=== PATIENT | female | born 1940 | race Caucasian/White ===

== ENCOUNTER 2017-10-31 06:56 | Emergency (ER) | payer MEDICARE, BC ==
--- NOTE | 2017-10-31 07:14 | ERNOTE ---
ENT HPI Date of Service: 10/31/17 Presenting Symptoms: other - sore throat Time Seen by Provider: 10/31/17 07:15 Source: patient Exam Limitations: no limitations - Immun/Allergies/Home Medications Immunizations: IMMUNIZATION HX Immunizations Up to Date No History of Influenza Vaccine No Hx Pneumococcal Vaccination No Allergies/Adverse Reactions: Allergies Allergy/AdvReac Type Severity Reaction Status Date / Time nicotine Allergy Severe nicotine Verified 10/31/17 07:34 patch caused Anaphylaxis Penicillins Allergy Severe Anaphylaxis Verified 10/31/17 07:34 bupropion HCl [From Zyban] Allergy Unknown Verified 10/31/17 07:34 cyclobenzaprine HCl Allergy Unknown Verified 10/31/17 07:34 [From Flexeril] nabumetone Allergy Unknown Verified 10/31/17 07:34 acetaminophen [From Ultracet] AdvReac Mild chest Verified 10/31/17 07:34 discomfort adhesive AdvReac Mild bandaids-re Verified 10/31/17 07:34 dness tramadol HCl [From Ultracet] AdvReac Mild chest Verified 10/31/17 07:34 discomfort trazodone AdvReac Mild keeps her Verified 10/31/17 07:34 awake Home Medications: HOME MEDICATIONS Aspirin [Aspir 81] 81 mg PO DAILY 11/14/12 [Last Taken Unknown] Levothyroxine Sodium 50 mcg PO DAILY 11/14/12 [Last Taken Unknown] Metoprolol Tartrate 50 mg PO BID 11/14/12 [Last Taken 12/12/15 06:30] Simvastatin 20 mg PO HS 11/14/12 [Last Taken Unknown] Albuterol Sulfate/Ipratropium [Duoneb 2.5-0.5MG/3ML Soln] 3 ml IH QID 12/03/15 [ Last Taken Unknown] Cholecalciferol (Vitamin D3) [Vitamin D] 1,000 unit PO DAILY 12/03/15 [Last Taken Unknown] Potassium Chloride [Klor-Con M10] 20 meq PO BID 12/03/15 [Last Taken Unknown] Bimatoprost [Lumigan 0.01% Opth Solution] 1 drop OP DAILY 10/31/17 [Last Taken Unknown] Doxycycline Hyclate [Morgidox] 100 mg PO BID #13 capsule 10/31/17 [Last Taken Unknown] HYDROcodone/ACETAMINOPHEN [[place] 5-325] 1 each PO QID 10/31/17 [Last Taken Unknown] Losartan/Hydrochlorothiazide [Losartan-Hctz 100-12.5 mg Tab] 1 each PO DAILY 10/07 [Last Taken Unknown] Triazolam 0.25 mg PO HS 10/31/17 [Last Taken Unknown] predniSONE [Deltasone] 20 mg PO BID #7 tablet 10/31/17 [Last Taken Unknown] - History of Present Illness Narrative: 77 year old that has had a two day history of productive cough, yielding yellow phlegm. Hx of COPD and typically has clear phlegm with coughing. No complaints of fever or chills, but has felt fatigued. Complaints of a sharp sensation at the throat and chest for 1.5 days, that is not improved or made worse by anything. She has not used any medications other than the routine meds. Date (Duration): 10/31/17 Time (Timing): 07:10 Severity: Present: moderate ENT Location: Present: throat Modifying Factors - Improves: Reports: nothing Modifying Factors - Worsens: Reports: nothing Associated Symptoms - ENT: Reports: sore throat Review of Systems - Review of Systems Constitutional: Present: other - feeling fatigued EYE: Present: no symptoms reported ENT: Present: no symptoms reported Respiratory: Present: cough Cardiology: Present: no symptoms reported Gastrointestinal/Abdominal: Present: no symptoms reported Genitourinary: Present: no symptoms reported Musculoskeletal: Present: no symptoms reported Skin: Present: no symptoms reported Neurological: Present: no symptoms reported Endocrine: Present: no symptoms reported Hematologic/Lymphatic: Present: no symptoms reported Psych: Present: no symptoms reported - Patient's Past Medical History Patient History - Medical: Anemia, Anxiety, Cataracts, Fibromyalgia, Hypothyroidism, Other Patient History - Cardiac/Respiratory: COPD, Hypertension, Hyperlipidemia, Sleep Apnea Patient History - Cancer: No Hx of Cancer, Radiation Therapy Patient History - Surgical Procedures: Cholecystectomy, Colon Resection, Colonoscopy, , EGD, T & A, Other Patient History - Other: None LMP (females 10-50): Menopausal - Social History Living Situations: home Abuse History: No History of abuse Psych History: Hx of Anxiety Smoking Status: Never smoker Have you smoked in the past 12 months: No Do you dip or chew tobacco: No Alcohol Use: none Drug Use: none - Immunizations Immunizations Up to Date: No Hx Pneumococcal Vaccination: No History of Influenza Vaccine: No Physical Exam - Physical Exam Narrative: Pleasant and cooperative. General Appearance: Present: no apparent distress Head Exam: Present: normal inspection Eye Exam: Normal inspection: bilateral, PERRL: bilateral Ears, Nose, Throat: Present: normal ENT inspection Neck: Present: normal inspection Respiratory: Present: no respiratory distress, no accessory muscle use Cardiovascular/Chest: Present: regular rate, rhythm, no murmur Gastrointestinal/Abdominal: Present: nontender Back Exam: Present: normal inspection Extremity Exam: Present: normal inspection Neurological Exam: Present: alert, oriented, normal mood/affect Skin Exam: Present: normal color ED Progress - Results and Orders Patient's Lab Results:: I have reviewed the patient's lab results. - Vital Signs Patient's Vital Signs:: I have reviewed the patient's vital signs. Vital Signs: Vital Signs 10/31/17 06:59 Temperature 36.6 C Pulse Rate 67 Respiratory 14 Rate Blood Pressure 168/76 O2 Sat by Pulse 97 Oximetry - EKG EKG: NSR EKG read: Interp. by me EKG Comments: Sinus, old septal IL, rate 65, no change from previous. - X-Ray X-Ray #1 X-Ray: chest Interpretation: Interp. by me X-ray Comments: No acute disease. - Progress/Reassessment Chief Complaint: Sore Throat Progress:: Improved Progress Note-Subjective: 10/31/17 07:28 Given a duoneb treatment. 10/31/17 08:11 Modest improvement after the neb treatment. Departure Clinical Impression: COPD exacerbation - Departure Disposition: Home self-care Condition: Fair Instructions: Chronic Obstructive Pulmonary Disease Exacerbation, [id number] Print Language: Occitan Referrals: Diogenes Ortiz MD [Primary Care Provider] - Prescriptions: Doxycycline Hyclate [Morgidox] 100 mg PO BID #13 capsule predniSONE [Deltasone] 20 mg PO BID #7 tablet
[2017-10-31] MEDS ORDERED: ALBUTEROL SULFATE/IPRATROPIUM 3 ML NEBU IH ONE ×2 (07:23→08:14)
[2017-10-31 07:32] LABS: Hemoglobin 12.7 gm/dL (12.5-16.0); Mean Corpuscular Hemoglobin 31.8 pg (27-31); Mean Corpuscular Hgb Conc 33.4 g/dl (32-36); Mean Platelet Volume 9.7 fl (6.0-9.5); Neutrophil # 9.4 K/mm3 (1.3-6.0); Neutrophil % 74.6 % (42-75.0); Platelet Count 223 K/mm3 (150-450); Red Cell Distribution Width 11.7 % (11.5-14.0); White Blood Count 12.7 K/mm3 (4.0-10.5)
[2017-10-31] MEDS: ALBUTEROL SULFATE/IPRATROPIUM 3 ML NEBU IH ONE ×2 (07:45→08:17)
[2017-10-31 07:56] LABS: Anion Gap 9.2 mmol/L (6.8-13.8); BUN/Creatinine Ratio 19.6 (9.0-21.6); Blood Urea Nitrogen 22 mg/dL (3-23); Calcium * 8.6 mg/dL (7.9-10.9); Carbon Dioxide 32.3 mmol/L (24-32.6); Chloride 101 mmol/L (97-106); Estimated Creat Clear 31.2; Glucose * 84 mg/dL (70-110); Potassium 3.5 mmol/L (3.4-4.6); Sodium 139 mmol/L (132-142); Troponin I Less than 0.017 ng/ml (0.00-0.10)
[2017-10-31] MEDS ORDERED: DOXYCYCLINE HYCLATE 100 MG TABLET PO ONE (08:12)
[2017-10-31] MEDS ORDERED: ALBUTEROL SULFATE 2.5 MG/0.5 ML VIAL.NEB IH ONE (08:12)
[2017-10-31] MEDS ORDERED: predniSONE 20 MG TABLET PO ONE (08:13)
[2017-10-31] MEDS ORDERED: DOXYCYCLINE HYCLATE 100 MG TABLET ONE (08:14)
[2017-10-31] MEDS ORDERED: predniSONE 20 MG TABLET ONE (08:14)
[2017-10-31 08:36] VITALS: BP 160/70
== END 2017-10-31 08:26 | disposition home or self-care (01) ==
LOC: ER 06:56
DX: J44.1 Chronic obstructive pulmonary disease with (acute) exacerbation (principal); E03.9 Hypothyroidism, unspecified; I10 Essential (primary) hypertension; E78.5 Hyperlipidemia, unspecified